=== PATIENT | female | born 1980 | race Caucasian/White ===

== ENCOUNTER 2023-10-25 09:53 | Emergency (ER) | payer OTHER, SELFPAY ==
[2023-10-25 10:07] VITALS: BP 105/68; PULSE 75; TEMP 36.6; O2SAT 97
--- NOTE | 2023-10-25 10:15 | ED_ITS ---
HPI - URI/Sore Throat General Chief Complaint: Upper Respiratory Infection Stated Complaint: SORE THROAT Time Seen by Provider: 10/25/23 10:15 Source: patient History of Present Illness HPI Narrative: This patient is here with her 2 children and herself to be seen. She describes upper respiratory symptoms of runny nose sore throat losing her voice aches pains chills and fever. Now the children are getting it. She is otherwise healthy is not on any medications has no underlying medical illnesses that she is aware of. Her vital signs are stable there is no respiratory distress her pulse oximetry is normal and she is afebrile. Related Data Allergies Allergy/AdvReac Type Severity Reaction Status Date / Time No Known Drug Allergies Allergy Verified 10/25/23 10:09 Exam Narrative Exam Narrative: Patient is awake alert pleasant does not appear ill or toxic. She is afebrile there is no difficulty with her airway there is no stridor posturing or drooling. Phonation is normal. Pharynx does not show any erythema. The uvula is not swollen the tongue protrudes in the midline. Her lungs were clear with no wheeze rales or rhonchi heart sounds are normal with no clicks rubs or murmur. She has no abdominal pain. She has no pain in her extremities or swelling. Constitutional Vital Signs, click to edit/add: Last Vital Signs Temp 97.9 F 10/25/23 10:07 Pulse 75 10/25/23 10:07 Resp 18 10/25/23 10:07 BP 105/68 10/25/23 10:07 Pulse Ox 97 10/25/23 10:07 O2 Del Method Room Air 10/25/23 10:07 Course Vital Signs Vital signs: Vital Signs Temperature 97.9 F 10/25/23 10:07 Pulse Rate 75 10/25/23 10:07 Respiratory Rate 18 10/25/23 10:07 Blood Pressure 105/68 10/25/23 10:07 Pulse Oximetry 97 10/25/23 10:07 Oxygen Delivery Method Room Air 10/25/23 10:07 Temperature 97.9 F 10/25/23 10:07 Pulse Rate 75 10/25/23 10:07 Respiratory Rate 18 10/25/23 10:07 Blood Pressure 105/68 10/25/23 10:07 Pulse Oximetry 97 10/25/23 10:07 Oxygen Delivery Method Room Air 10/25/23 10:07 MDM - URI/Sore Throat MDM Narrative Medical decision making narrative: Patient does have classic viral type symptomatology. We are seeing a recurrence of COVID but when we test her she is negative. Her 2 grandchildren also are here and they tested negative for COVID as well. This still is consistent with a viral etiology. I do not believe she needs imaging since her respiratory evaluation and pulse oximetry are normal Lab Data Labs: Lab Results 10/25/23 Range/Units 10:10 Streptococcus Screen Negative Discharge Plan Discharge Stand Alone Forms: Work/School Release, Portal Instructions Chief Complaint: Upper Respiratory Infection Clinical Impression: Acute upper respiratory infection Patient Disposition: Home, Self-Care Time of Disposition Decision: 12:16 Print Language: Kinyarwanda Additional Instructions: Patient may use fever reducers and [id number] NSAIDs for aches and pains. Voice rest, [id number] lozenges. This appears to be a viral infection Referrals: Physician,Non-Staff, [Primary Care Provider] - 1 week
[2023-10-25 11:02] LABS: Internal Control Within Normal Limits; Strep A Antigen Screen Negative
[2023-10-25 12:14] LABS: Internal Control Within Normal Limits; SARS-CoV-2 Ag NEGATIVE (NEGATIVE)
[2023-10-25 12:25] VITALS: BP 142/84; PULSE 67; O2SAT 98
== END 2023-10-25 12:37 | disposition home or self-care (01) ==
PROVIDERS: Emergency Provider Emergency Medicine Emergency Medical Services
DX: J06.9 Acute upper respiratory infection, unspecified (principal)
CPT/HCPCS: 87070; 87811; 87880; 99283